=== PATIENT | female | born 2000 | race Hispanic/Latino ===

== ENCOUNTER 2019-05-11 19:42 | Emergency (ER) | payer SELFPAY ==
--- NOTE | 2019-05-11 20:36 | RAD REPORT ---
EXAM DESCRIPTION: Heather Single View05/11/2019 8:26 pm CLINICAL HISTORY: Chest pain COMPARISON: none FINDINGS: The lungs appear clear of acute infiltrate. The heart is normal size IMPRESSION: No acute abnormalities displayed
--- NOTE | 2019-05-11 21:41 | ER ---
Nurse's Notes [facility] Name: Perico Minor Age: 18 yrs Sex: Female : 2000 Arrival Date: 05/11/2019 Time: 19:44 Bed 15 Private MD: Diagnosis: Chest pain, unspecified Presentation: 05/11 19:51 Presenting complaint: Patient states: She has been having chest pain all day, now she aj1 is having shortness of breath. Reports that she was at work walking outside when the chest pain started. States that it was in the middle and now its on the left side of her chest. Transition of care: patient was not received from another setting of care. Onset of symptoms was May 11, 2019. Risk Assessment: Do you want to hurt yourself or someone else? Patient reports no desire to harm self or others. Initial Sepsis Screen: Does the patient meet any 2 criteria? No. Patient's initial sepsis screen is negative. Does the patient have a suspected source of infection? No. Patient's initial sepsis screen is negative. Care prior to arrival: None. 19:51 Method Of Arrival: Ambulatory [facility] 19:51 Acuity: BRINA 3 aj1 Triage Assessment: 19:54 General: Appears in no apparent distress. comfortable, Behavior is calm, cooperative, aj1 appropriate for age. Pain: Complains of pain in chest Pain currently is 8 out of 10 on a pain scale. Neuro: Level of Consciousness is awake, alert, obeys commands. Cardiovascular: Patient's skin is warm and dry. Respiratory: Airway is patent Respiratory effort is even, unlabored, Respiratory pattern is regular, symmetrical. 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 - Social history:: Smoking status: Patient/guardian denies using tobacco. - Ebola Screening: : Patient denies travel to an Ebola-affected area in the 21 days before illness onset. Screenin:30 Abuse screen: Denies threats or abuse. Nutritional screening: No deficits noted. fu Tuberculosis screening: No symptoms or risk factors identified. Fall Risk None identified. Assessment: 19:55 General: Appears in no apparent distress. Behavior is calm, cooperative, appropriate fu for age, Denies fever, feeling ill, fatigue, chills. Pain: Pain does not radiate. Pain currently is 5 out of 10 on a pain scale. Quality of pain is described as aching, Pain began 1 day ago. Neuro: Level of Consciousness is awake, alert, obeys commands, Oriented to person, place, time, situation. Cardiovascular: Reports chest pain, Heart tones S1 S2. Respiratory: Airway is patent Breath sounds are clear bilaterally. GI: Bowel sounds present X 4 quads. Patient currently denies nausea, vomiting. : No signs and/or symptoms were reported regarding the genitourinary system. 21:00 Reassessment: Patient appears in no apparent distress at this time. Patient and/or fu family updated on plan of care and expected duration. Pain level reassessed. Patient is alert, oriented x 3, equal unlabored respirations, skin warm/dry/pink. Patient denies pain at this time. 21:50 Reassessment: Patient appears in no apparent distress at this time. Patient and/or fu family updated on plan of care and expected duration. Pain level reassessed. Patient is alert, oriented x 3, equal unlabored respirations, skin warm/dry/pink. Patient denies pain at this time. Vital Signs: 19:54 BP 114 / 76; Pulse 75; Resp 16; Temp 97.5; Pulse Ox 98% on R/A; Weight 54 kg; Height 4 aj1 ft. 10 in. (147.32 cm) (R); Pain 8/10; 20:15 BP 107 / 81; Pulse 71; Resp 18; Pulse Ox 100% on R/A; Pain 0/10; fu 20:45 BP 103 / 62; Pulse 67; Resp 18; Pulse Ox 100% ; Pain 0/10; fu 21:15 BP 99 / 51; Pulse 69; Resp 19; Pulse Ox 100% ; Pain 0/10; fu 19:54 Body Mass Index 24.88 (54.00 kg, 147.32 cm) aj1 ED Course: 19:44 Patient arrived in ED. cf2 19:45 [facility]iel[facility]C [facility] kb 19:45 Deion Alba MD is Attending Physician. kb 19:53 Triage completed. aj1 19:54 Arm band placed on Patient placed in an exam room. aj1 20:00 Anthony Valentine, RN is Primary Nurse. fu 20:26 Chest Single View XRAY In Process Unspecified. EDMS 20:46 Troponin (emerg Dept Use Only) Sent. aj1 20:46 Inserted saline lock: 22 gauge in right forearm, using aseptic technique. fu 21:00 Patient has correct armband on for positive identification. Placed in gown. Bed in low fu position. Call light in reach. Side rails up X 1. front desk monitor on. Pulse ox on. NIBP on. 21:00 No provider procedures requiring assistance completed. Patient maintains SpO2 fu saturation greater than 95% on room air. 22:00 IV discontinued, bleeding controlled, Pressure dressing applied. fu Administered Medications: No medications were administered Outcome: 21:40 Discharge ordered by MD. kb 22:00 Discharged to home ambulatory. fu 22:00 Condition: stable 22:00 Discharge instructions given to patient, Instructed on discharge instructions, follow up and referral plans. Demonstrated understanding of instructions. 22:01 Patient left the ED. fu Signatures: Dispatcher [employer] EDCT Nisreen Nielson, ARTS ADMINISTRATOR-C ARTS ADMINISTRATOR-Dianne Donahue, RN RN aj Anthony Valentine, RN RN Jonny Kong [facility]
--- NOTE | 2019-05-11 21:41 | EDPHYS ---
Physician Documentation [facility] Name: Perico Minor Age: 18 yrs Sex: Female : 2000 Arrival Date: 05/11/2019 Time: 19:44 Bed 15 Private MD: ED Physician Deion Abla HPI: 05/11 20:21 This 18 yrs old Female presents to ER via Ambulatory with complaints of Chest kb Pain, Nasal Congestion. 20:21 The patient or guardian reports chest pain that is located primarily in the anterior kb chest wall, left. The pain does not radiate. Associated signs and symptoms: Pertinent positives: None. The chest pain is described as aching. Duration: The patient or guardian reports a single episode, that is still ongoing. Modifying factors: The symptoms are alleviated by nothing. the symptoms are aggravated by nothing. Severity of pain: At its worst the pain was moderate in the emergency department the pain is unchanged. The patient has not experienced similar symptoms in the past. The patient has not recently seen a physician. Pt reports chest pain that started this morning. Denies any other symptoms. 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 - Social history:: Smoking status: Patient/guardian denies using tobacco. - Ebola Screening: : Patient denies travel to an Ebola-affected area in the 21 days before illness onset. ROS: 20:20 Constitutional: Negative for fever, chills, and weight loss, ENT: Negative for injury, kb pain, and discharge, Neck: Negative for injury, pain, and swelling, Respiratory: Negative for shortness of breath, cough, wheezing, and pleuritic chest pain, Abdomen/GI: Negative for abdominal pain, nausea, vomiting, diarrhea, and constipation, Back: Negative for injury and pain, MS/Extremity: Negative for injury and deformity, Skin: Negative for injury, rash, and discoloration, Neuro: Negative for headache, weakness, numbness, tingling, and seizure. 20:20 Cardiovascular: Positive for chest pain, Negative for edema, orthopnea, palpitations, paroxysmal nocturnal dyspnea. Exam: 20:20 Constitutional: This is a well developed, well nourished patient who is awake, alert, kb and in no acute distress. Head/Face: Normocephalic, atraumatic. ENT: Nares patent. No nasal discharge, no septal abnormalities noted. Tympanic membranes are normal and external auditory canals are clear. Oropharynx with no redness, swelling, or masses, exudates, or evidence of obstruction, uvula midline. Mucous membranes moist. Neck: Trachea midline, no thyromegaly or masses palpated, and no cervical lymphadenopathy. Supple, full range of motion without nuchal rigidity, or vertebral point tenderness. No Meningismus. Chest/axilla: Normal chest wall appearance and motion. Nontender with no deformity. No lesions are appreciated. Cardiovascular: Regular rate and rhythm with a normal S1 and S2. No gallops, murmurs, or rubs. Normal PMI, no JVD. No pulse deficits. Respiratory: Lungs have equal breath sounds bilaterally, clear to auscultation and percussion. No rales, rhonchi or wheezes noted. No increased work of breathing, no retractions or nasal flaring. Abdomen/GI: Soft, non-tender, with normal bowel sounds. No distension or tympany. No guarding or rebound. No evidence of tenderness throughout. Back: No spinal tenderness. No costovertebral tenderness. Full range of motion. Skin: Warm, dry with normal turgor. Normal color with no rashes, no lesions, and no evidence of cellulitis. MS/ Extremity: Pulses equal, no cyanosis. Neurovascular intact. Full, normal range of motion. Neuro: Awake and alert, GCS 15, oriented to person, place, time, and situation. Cranial nerves II-XII grossly intact. Motor strength 5/5 in all extremities. Sensory grossly intact. Cerebellar exam normal. Normal gait. 20:59 ECG was reviewed by the Attending Physician. kb Vital Signs: 19:54 BP 114 / 76; Pulse 75; Resp 16; Temp 97.5; Pulse Ox 98% on R/A; Weight 54 kg; Height 4 aj1 ft. 10 in. (147.32 cm) (R); Pain 8/10; 20:15 BP 107 / 81; Pulse 71; Resp 18; Pulse Ox 100% on R/A; Pain 0/10; fu 20:45 BP 103 / 62; Pulse 67; Resp 18; Pulse Ox 100% ; Pain 0/10; fu 21:15 BP 99 / 51; Pulse 69; Resp 19; Pulse Ox 100% ; Pain 0/10; fu 19:54 Body Mass Index 24.88 (54.00 kg, 147.32 cm) aj1 MDM: 19:58 Patient medically screened. kb 20:19 Data reviewed: vital signs, nurses notes. Data interpreted: Pulse oximetry: on room air kb is 98 %. Interpretation: normal. Counseling: I had a detailed discussion with the patient and/or guardian regarding: the historical points, exam findings, and any diagnostic results supporting the discharge/admit diagnosis, radiology results, the need for outpatient follow up, a family practitioner, to return to the emergency department if symptoms worsen or persist or if there are any questions or concerns that arise at home. 05/11 20:21 Order name: Troponin (emerg Dept Use Only); Complete Time: 21:40 kb 05/11 19:58 Order name: Chest Single View XRAY; Complete Time: 20:42 kb 05/11 19:58 Order name: EKG; Complete Time: 19:59 kb 05/11 19:58 Order name: EKG - Nurse/Tech; Complete Time: 20:46 kb EC:59 Rate is 66 beats/min. Rhythm is regular. QRS [place] is Normal. SC interval is normal at kb 134 msec. QRS interval is normal at 70 msec. QT interval is normal at 426 msec. Administered Medications: No medications were administered Disposition: 05/12 00:30 Co-signature as Attending Physician, Deion Alba MD. rn Disposition: 05/11/19 21:40 Discharged to Home. Impression: Chest pain, unspecified. - Condition is Stable. - Discharge Instructions: Nonspecific Chest Pain, [id number]. - Medication Reconciliation Form, Thank You Letter, Antibiotic Education, Prescription Opioid Use form. - Follow up: Emergency Department; When: As needed; Reason: Worsening of condition. Follow up: Private Physician; When: 2 - 3 days; Reason: Recheck today's complaints, Continuance of care, Re-evaluation by your physician. Signatures: Dispatcher [employer] Nisreen Baxter, HUMAN RESOURCES BENEFITS ASSISTANT-C HUMAN RESOURCES BENEFITS ASSISTANT-Dianne Donahue RN RN aj1 Deion Alba MD MD rn Meme, FLOYD Cruz RN fu Corrections: (The following items were deleted from the chart) 05/11 22:01 21:40 05/11/2019 21:40 Discharged to Home. Impression: Chest pain, unspecified. fu Condition is Stable. Discharge Instructions: Nonspecific Chest Pain, [id number]. Forms are Medication Reconciliation Form, Thank You Letter, Antibiotic Education, Prescription Opioid Use. Follow up: Emergency Department; When: As needed; Reason: Worsening of condition. Follow up: Private Physician; When: 2 - 3 days; Reason: Recheck today's complaints, Continuance of care, Re-evaluation by your physician. kb
[2019-05-11 22:14] VITALS: BP 114/76; TEMP 97.5; O2SAT 98
--- NOTE | 2019-05-12 13:24 | EKG ---
Test Date: 2009-05-11 Test Time: 20:35:24 Women'S Activities Adviser: YAMIL MEASUREMENT RESULTS: Intervals: Rate: 66 IA: 134 QRSD: 70 QT: 426 QTc: 446 [place]: P: -5 IA: 134 QRS: 56 T: 37 INTERPRETIVE STATEMENTS: Normal sinus rhythm Normal ECG Cardioserver Error - Incorrect date EKG done on 05-11-2019 No previous ECG available for comparison Electronically Signed On 05-12-19 13:21:08 [employer] MEMBER by Kevin Saldana
== END 2019-05-11 22:01 | disposition home or self-care (01) ==
LOC: ER 19:42
DX: R07.9 Chest pain, unspecified (principal); Z88.0 Allergy status to penicillin
CPT/HCPCS: 36415; 71045; 84484; 93005; 99285